=== PATIENT | female | born 1965 | race Two or more races ===

== ENCOUNTER 2022-06-22 10:13 | Inpatient (IN) | payer OTHER ==
[~2022-06-22] VITALS: Ht 165.1 cm; Wt 86.2 kg
[2022-06-22] MEDS ORDERED: CLEOCIN T60 ML TP (10:41)
[2022-06-22] MEDS ORDERED: COZAAR50 MG PO (10:42)
--- NOTE | 2022-06-22 10:45 | NUR ---
SE RECIBE PTE ALERTA ORIENTADA X3.PTE REFIERE TNER MOLESTIA AL ORINAR HACEN 3 SEMANAS.PTE REFIERE TENER TX MEDICO DE ANTIBIOTICOS LOS CUALES NO PAEZ MOSTRADO MEJORIA.SE JAMILA S/V Y SE UBICA.
--- NOTE | 2022-06-22 13:00 | NUR ---
SE ORIENTA PTE SOBRE EL TRATAMIENTO ORDENADO POR LA DRA VENTURA PTE ALERTA Y ORIENTADO POR 3 SE REALIZAN MUESTRAS DE LABORATORIO.
== END 2022-06-24 13:08 | disposition home or self-care (01) | DRG 690 ==
LOC: ER 10:13 → MEDI 18:29
PROVIDERS: ADMIT Internal Medicine; ATTEND Internal Medicine
PROC: BW21ZZZ Computerized Tomography (CT Scan) of Abdomen and Pelvis (ICD-10-PCS; principal; 2022-06-22)
DX: N39.0 Urinary tract infection, site not specified (principal); B96.29 Other Escherichia coli [E. coli] as the cause of diseases classified elsewhere; I10 Essential (primary) hypertension; E11.9 Type 2 diabetes mellitus without complications; Z79.85 Long-term (current) use of injectable non-insulin antidiabetic drugs; E66.8 Other obesity; Z20.822 Contact with and (suspected) exposure to COVID-19